=== PATIENT | female | born 1965 | race Caucasian/White ===

== ENCOUNTER → 2016-10-21 | Outpatient (CLI) | payer OTHER | LOC: CIMAGING 09:36 | DX: Z12.31 Encounter for screening mammogram for malignant neoplasm of breast (principal); Z80.3 Family history of malignant neoplasm of breast | CPT/HCPCS: G0202 ==

== ENCOUNTER → 2016-11-04 | Outpatient (CLI) | payer OTHER | LOC: CIMAGING 12:52 | DX: Z12.39 Encounter for other screening for malignant neoplasm of breast (principal); R92.2 Inconclusive mammogram | CPT/HCPCS: G0206 ==

== ENCOUNTER → 2017-01-15 | Outpatient (CLI) | payer OTHER | LOC: CIMAGING 15:04 | PROVIDERS: ATTEND Family Medicine | DX: N95.9 Unspecified menopausal and perimenopausal disorder (principal); N92.6 Irregular menstruation, unspecified | CPT/HCPCS: 76856-PO ==

== ENCOUNTER → 2017-05-28 | Outpatient (CLI) | payer OTHER | LOC: CIMAGING 15:16 | PROVIDERS: ATTEND Obstetrics & Gynecology | DX: Z09 Encounter for follow-up examination after completed treatment for conditions other than malignant neoplasm (principal); Z87.42 Personal history of other diseases of the female genital tract | CPT/HCPCS: 76856-PO ==

== ENCOUNTER → 2017-11-02 | Outpatient (CLI) | payer OTHER | LOC: CIMAGING 14:03 | PROVIDERS: ATTEND Family Medicine | DX: Z12.31 Encounter for screening mammogram for malignant neoplasm of breast (principal); Z80.3 Family history of malignant neoplasm of breast ==

== ENCOUNTER → 2018-09-21 | Outpatient (CLI) | payer OTHER | LOC: FIMAGING 10:09 | PROVIDERS: ATTEND Radiology Diagnostic Radiology | DX: I83.812 Varicose veins of left lower extremity with pain (principal); I83.892 Varicose veins of left lower extremity with other complications ==

== ENCOUNTER → 2018-11-14 | Outpatient (CLI) | payer OTHER | LOC: CIMAGING 11:29 | PROVIDERS: ATTEND Family Medicine | DX: Z12.31 Encounter for screening mammogram for malignant neoplasm of breast (principal); Z80.3 Family history of malignant neoplasm of breast ==

== ENCOUNTER 2018-12-14 11:23 | Day surgery (SDC) | payer OTHER ==
[2018-12-14] MEDS ORDERED: PROTAMINE SULFATE 50 MG/5 ML VIAL IVP PRN (11:54)
[2018-12-14] MEDS ORDERED: FLUMAZENIL 0.5 MG/5 ML MDV IVP PRN (11:54)
[2018-12-14] MEDS ORDERED: NS 1,000 ML IV ONE (11:54)
[2018-12-14] MEDS ORDERED: fentaNYL 100 MCG/2 ML INJ IVP PRN (11:54)
[2018-12-14] MEDS ORDERED: MIDAZOLAM 2 MG/2 ML VIAL IVP PRN (11:54)
[2018-12-14] MEDS ORDERED: ALTEPLASE 2 MG VIAL IVP PRN (11:54)
[2018-12-14] MEDS ORDERED: MEPERIDINE 25 MG/ML SYR IVP PRN (11:54)
[2018-12-14] MEDS ORDERED: HEPARIN 10,000 UNIT/10 ML MDV (1,000 UNIT/ML) IVP PRN (11:54)
[2018-12-14] MEDS ORDERED: ONDANSETRON 4 MG/2 ML VIAL IVP ONE (11:54)
[2018-12-14] MEDS ORDERED: ceFAZolin 2 GM/DEXTROSE 100 ML IV ONE (11:54)
[2018-12-14] MEDS ORDERED: NALOXONE HCL 0.4 MG/ML INJ IVP PRN (11:54)
[2018-12-14] MEDS ORDERED: GLUCAGON HCL 1 MG VIAL IVP PRN (11:54)
[2018-12-14] MEDS ORDERED: SODIUM TETRADECYL SULFATE 3% 2 ML VIAL IV ONE (13:05)
[2018-12-14] MEDS ORDERED: LIDO/EPI 1% **for epidural** 30 ML SDV ONE (13:18)
[2018-12-14] MEDS ORDERED: POLIDOCANOL 0.5% 2 ML AMP IV ONE (13:28)
[2018-12-14] MEDS ORDERED: fentaNYL 100 MCG/2 ML INJ ONE (14:21)
[2018-12-14] MEDS ORDERED: NS 1,000 ML IV SCH (15:15)
[2018-12-14] MEDS ORDERED: ONDANSETRON DISINTEGRATING 4 MG TAB PO PRN (15:15)
[2018-12-14] MEDS ORDERED: ONDANSETRON 4 MG/2 ML VIAL IVP PRN (15:15)
[2018-12-14] MEDS ORDERED: HYDROCODONE/APAP 5/325 TAB PO PRN (15:15)
[2018-12-14] MEDS ORDERED: IBUPROFEN 200 MG TAB PO ONE (15:15)
[2018-12-14] MEDS ORDERED: ONDANSETRON DISINTEGRATING 4 MG TAB ONE (15:35)
== END 2018-12-14 18:15 | disposition home or self-care (01) ==
DX: I83.812 Varicose veins of left lower extremity with pain (principal); I83.892 Varicose veins of left lower extremity with other complications

== ENCOUNTER → 2018-12-21 | Outpatient (CLI) | payer OTHER | LOC: FCPNEURO 23:40 | PROVIDERS: ATTEND Student in an Organized Health Care Education/Training Program | DX: G47.33 Obstructive sleep apnea (adult) (pediatric) (principal) ==

== ENCOUNTER → 2018-12-22 | Outpatient (CLI) | payer OTHER | LOC: FIMAGING 14:39 ==